=== PATIENT | male | born 1990 | race Caucasian/White ===

== ENCOUNTER 2017-04-01 09:25 | Emergency (ER) | payer OTHER ==
[2017-04-01 09:31] VITALS: BP 158/100
--- NOTE | 2017-04-01 10:39 | ED Physician Documentation ---
PD HPI URI - Stated complaint Stated Complaint: COUGH,FEVER,SORE THROAT - Chief complaint Chief Complaint: Heent - History obtained from History obtained from: Patient - History of Present Illness Timing - onset: How many days ago (3-4) Timing duration: Days Timing details: Gradual onset, Still present Associated symptoms: Fever, Chills, Sore throat, Dry cough, NVD Contributing factors: Travel (recently moved from [facility], restationed here on ). No: Sick contact, Immunocompromised Similar symptoms before: Has not had sx before (not regular URIs; but he does have current cold sore which is recurrent.) Recently seen: Not recently seen Review of Systems Constitutional: reports: Fever, Chills, Myalgias, Fatigue Nose: reports: Congestion Throat: reports: Sore throat Respiratory: reports: Cough GI: reports: Nausea. 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) PD PAST MEDICAL HISTORY - Past Medical History Past Medical History: Yes Respiratory: Asthma - Past Surgical History Past Surgical History: Yes HEENT: Tonsil/Adenoidectomy - Present Medications Home Medications: Ambulatory Orders Medication Instructions Recorded Confirmed Albuterol Sulfate [Proair Hfa 2 puffs IH QID #1 hfa.aer.ad 04/01/17 Inhaler] Dexamethasone [Decadron] 4 mg PO DAILY #5 tablet 04/01/17 Gabapentin 100 mg PO BID #40 capsule 04/01/17 Naproxen 375 mg PO BID #40 tablet 04/01/17 Valacyclovir HCl [Valacyclovir] 500 mg PO TID #15 tablet 04/01/17 guaiFENesin/CODEINE [Robitussin AC] 10 ml PO Q6H PRN #240 ml 04/01/17 - Allergies Allergies/Adverse Reactions: Allergies Allergy/AdvReac Type Severity Reaction Status Date / Time No Known Drug Allergies Allergy Verified 04/01/17 09:28 - Social History Does the pt smoke?: No Smoking Status: Never smoker Does the pt drink ETOH?: Yes Does the pt have substance abuse?: No - Immunizations Immunizations are current?: Yes PD ED PE NORMAL - Vitals Vital signs reviewed: Yes - General General: Alert and oriented X 3, No acute distress, Well developed/nourished - HEENT HEENT: Ears normal, Moist mucous membranes, Dentition benign. No: Pharynx benign (pharynx is normal; the right lower lip margin with small patch of fine vesicular rash c/w HSV. ) - Neck Neck: Supple, no meningeal sign, No adenopathy - Cardiac Cardiac: RRR, No murmur - Respiratory Respiratory: Clear bilaterally - Derm Derm: Normal color, Warm and dry - Extremities Extremities: No tenderness to palpate, Normal ROM s pain - Neuro Neuro: Alert and oriented X 3, No motor deficit, Normal speech Results - Vitals Vitals: Oxygen O2 Source Room air Departure - Departure Disposition: Home, Self Care Clinical Impression: Recurrent cold sores, Neck pain, chronic Upper respiratory infection Qualifiers: URI type: unspecified URI Qualified Code(s): J06.9 - Acute upper respiratory infection, unspecified Dyspnea Qualifiers: Dyspnea type: shortness of breath Qualified Code(s): R06.02 - Shortness of breath Condition: Stable Record reviewed to determine appropriate education?: Yes Instructions: ED Upper Resp Infec No Abx Tx, ED Herpes Simplex Virus Type 1, ED Neck Back Pain General Follow-Up: [facility] [Provider Group] Prescriptions: Dexamethasone [Decadron] 4 mg PO DAILY #5 tablet Gabapentin 100 mg PO BID #40 capsule Naproxen 375 mg PO BID #40 tablet Albuterol Sulfate [Proair Hfa Inhaler] 2 puffs IH QID #1 hfa.aer.ad guaiFENesin/CODEINE [Robitussin AC] 10 ml PO Q6H PRN #240 ml PRN Reason: Cough Valacyclovir HCl [Valacyclovir] 500 mg PO TID #15 tablet Comments: Your main illness sounds viral and will treat the symptoms of it while letting it get better. Albuterol inhaler 2 puffs 4 times daily for 7-10 days. Decadron for bronchial inflammation (and of glands). Add cough medication as needed. Drink lots of fluids. Tylenol for fevers/aches. For the neck, can trty Naproxen twice daily and gabapentin twice daily. These are initial treatments for ongoing neck pains/nerve pains. For the cold sore, can use acyclovir three time daily for 5 days to try to get it to go away faster. Recheck if not improved over the next few days. Discharge Date/Time: 04/01/17 11:20
== END 2017-04-01 11:20 | disposition home or self-care (01) ==
LOC: ED 09:25
DX: J06.9 Acute upper respiratory infection, unspecified (principal); J45.909 Unspecified asthma, uncomplicated; B00.1 Herpesviral vesicular dermatitis; M54.2 Cervicalgia; G89.29 Other chronic pain
CPT/HCPCS: 99283

== ENCOUNTER 2019-02-24 09:05 | Emergency (ER) | payer OTHER ==
[2019-02-24 09:33] LABS: BASOPHILS % (AUTO) 0.2 %; EOSINOPHILS # (AUTO) 0.1 10^3/uL (0.0-0.7); EOSINOPHILS % (AUTO) 0.5 %; HGB - HEMOGLOBIN 16.8 g/dL (14.0-18.0); LYMPHOCYTES # (AUTO) 0.4 10^3/uL (1.5-3.5); LYMPHOCYTES % (AUTO) 2.4 %; MEAN CORPUSCULAR HEMOGLOBIN 28.6 pg (27.0-31.0); MEAN CORPUSCULAR HGB CONC 33.9 g/dL (32.0-36.0); MEAN CORPUSCULAR VOLUME 84.4 fL (80.0-94.0); MEAN PLATELET VOLUME 9.2 fL (7.4-11.4); MONOCYTES # (AUTO) 0.6 10^3/uL (0.0-1.0); MONOCYTES % (AUTO) 3.8 %; NEUTROPHILS # (AUTO) 13.7 10^3/uL (1.5-6.6); NEUTROPHILS % (AUTO) 93.1 %; PLT - PLATELET COUNT 206 10^3/uL (130-450); RED BLOOD COUNT 5.86 10^6/uL (4.70-6.10); RED CELL DISTRIBUTION WIDTH 12.7 % (12.0-15.0); WHITE BLOOD COUNT 14.7 x10^3/uL (4.8-10.8)
[2019-02-24 09:45] LABS: ALBUMIN/GLOBULIN RATIO 1.5 (1.0-2.2); BILIRUBIN,TOTAL 1.2 mg/dL (0.2-1.0); CALCIUM 9.3 mg/dL (8.5-10.3); CREATININE 1.1 mg/dL (0.6-1.2); TOTAL PROTEIN 8.4 g/dL (6.7-8.2)
[2019-02-24 11:53] LABS: BILIRUBIN,URINE NEGATIVE (NEGATIVE); GLUCOSE, URINE (UA) NEGATIVE (NEGATIVE); KETONES,URINE (UA) NEGATIVE (NEGATIVE); LEUKOCYTE ESTERASE, URINE NEGATIVE (NEGATIVE); NITRITE,URINE NEGATIVE (NEGATIVE); OCCULT BLOOD,URINE NEGATIVE (NEGATIVE); PH,URINE 5.5 PH (5.0-7.5); PROTEIN,URINE NEGATIVE (NEGATIVE); UROBILINOGEN,URINE 0.2 (NORMAL) E.U./dL (NORMAL)
[2019-02-24 11:55] LABS: CLARITY,URINE CLEAR (CLEAR)
[2019-02-24] MEDS ORDERED: ONDANSETRON 4 MG/2 ML VIAL IVP STA (11:58)
[2019-02-24] MEDS ORDERED: LACTATED RINGERS 2,000 ML IV STA (11:58)
[2019-02-24] MEDS ORDERED: LOPERAMIDE 2 MG CAPSULE PO STA (11:58)
--- NOTE | 2019-02-24 11:59 | ED Physician Documentation ---
PD HPI NVD - Stated complaint Stated Complaint: V/D/DIZZY/FEVER - Chief complaint Chief Complaint: Abd Pain - History obtained from History obtained from: Patient - History of Present Illness Timing - onset: Today (He became abruptly ill at 2 AM this morning with vomiting and diarrhea. There is no abdominal pain associated with it. No blood from either end. No sick contacts or recent travel.) Review of Systems Constitutional: reports: Chills, Sweats. denies: Fever Cardiac: denies: Chest pain / pressure, Palpitations Respiratory: denies: Dyspnea, Cough PD PAST MEDICAL HISTORY - Past Medical History Respiratory: Asthma - Past Surgical History Past Surgical History: Yes HEENT: Tonsil/Adenoidectomy - Present Medications Home Medications: Ambulatory Orders Medication Instructions Recorded Confirmed Loperamide [Imodium] 2 mg PO QID PRN #10 capsule 02/24/19 Ondansetron Odt [Zofran] 4 mg TL Q6H PRN #10 tablet 02/24/19 - Allergies Allergies/Adverse Reactions: Allergies Allergy/AdvReac Type Severity Reaction Status Date / Time No Known Drug Allergies Allergy Verified 02/24/19 09:12 - Social History Does the pt smoke?: No Smoking Status: Never smoker Does the pt drink ETOH?: Yes Does the pt have substance abuse?: No - Immunizations Immunizations are current?: Yes PD ED PE NORMAL - Vitals Vital signs reviewed: Yes - General General: Alert and oriented X 3, No acute distress, Other (Modest tachycardia) - HEENT HEENT: Other (Mildly dry mucous membranes) - Neck Neck: Supple, no meningeal sign, No bony TTP - Abdomen Abdomen: Normal bowel sounds, Soft, Non tender - Neuro Neuro: Alert and oriented X 3, Normal speech - Psych Psych: Normal mood, Normal affect Results - Vitals Vitals: Vital Signs - 24 hr 02/24/19 02/24/19 02/24/19 09:10 11:44 13:07 Temperature 35.9 C L 37.1 C Heart Rate 114 H 103 H 110 H Respiratory 14 14 15 Rate Blood Pressure 130/95 H 138/90 H 128/74 O2 Saturation 99 98 100 Oxygen O2 Source Room air - Labs Labs: Laboratory Tests 02/24/19 02/24/19 02/24/19 09:26 09:26 11:30 WBC 14.7 H RBC 5.86 Hgb 16.8 Hct 49.5 MCV 84.4 MCH 28.6 MCHC 33.9 RDW 12.7 Plt Count 206 MPV 9.2 Neut # (Auto) 13.7 H Lymph # (Auto) 0.4 L [place] # (Auto) 0.6 Eos # (Auto) 0.1 Baso # (Auto) 0.0 Absolute Nucleated RBC 0.04 Nucleated RBC % 0.3 Sodium 137 Potassium 4.7 Chloride 99 L Carbon Dioxide 29 Anion Gap 9.0 BUN 26 H Creatinine 1.1 Estimated GFR (MDRD) 80 L Glucose 142 H Calcium 9.3 Total Bilirubin 1.2 H AST 31 ALT 36 Alkaline Phosphatase 56 Total Protein 8.4 H Albumin 5.0 Globulin 3.4 Albumin/Globulin Ratio 1.5 Lipase 26 Urine Color YELLOW Urine Clarity CLEAR Urine pH 5.5 Ur Specific [place] >=1.030 H Urine Protein NEGATIVE Urine Glucose (UA) NEGATIVE Urine Ketones NEGATIVE Urine Occult Blood NEGATIVE Urine Nitrite NEGATIVE Urine Bilirubin NEGATIVE Urine Urobilinogen 0.2 (NORMAL) Ur Leukocyte Esterase NEGATIVE Ur Microscopic Review NOT INDICATED Urine Culture Comments NOT INDICATED PD MEDICAL DECISION MAKING - ED course ED course: This is a 29-year-old gentleman with clinical gastroenteritis. He was not much better after Zofran, but feeling much better after Reglan, passed a p.o. challenge and on reexamination prior to discharge remained completely nontender including to deep palpation in the right lower quadrant. Departure - Departure Disposition: 01 Home, Self Care Clinical Impression: Gastroenteritis Condition: Good Record reviewed to determine appropriate education?: Yes Instructions: ED Gastroenteritis Viral Prescriptions: Loperamide [Imodium] 2 mg PO QID PRN #10 capsule PRN Reason: Diarrhea Ondansetron Odt [Zofran] 4 mg TL Q6H PRN #10 tablet PRN Reason: Nausea / Vomiting Comments: Return in 12 hours if not better, anytime if worse or if new symptoms develop. Forms: Activity restrictions
[2019-02-24] MEDS ORDERED: METOCLOPRAMIDE 10 MG/2 ML VIAL IVP STA (12:46)
[2019-02-24 14:26] VITALS: BP 138/70
== END 2019-02-24 14:26 | disposition home or self-care (01) ==
LOC: ED 09:05
DX: K52.9 Noninfective gastroenteritis and colitis, unspecified (principal)
CPT/HCPCS: 36415; 80053; 81003; 83690; 85025; 96361; 96374; 96375; 99283; 99284; A9270; J2765; J7120; 81001; 87086

== ENCOUNTER 2019-07-03 15:13 | Emergency (ER) | payer OTHER ==
[2019-07-03 15:28] VITALS: BP 149/89
--- NOTE | 2019-07-03 15:44 | ED Physician Documentation ---
PD HPI SKIN - Stated complaint Stated Complaint: HORNET STINGS LT LEG - Chief complaint Chief Complaint: Allergic Rx - History obtained from History obtained from: Patient - History of Present Illness Timing - onset: Yesterday (He was stung several times to the left lower leg by wasps yesterday and now has burning pain in that area and blister formation. No fevers.) Review of Systems Constitutional: denies: Fever, Chills Cardiac: reports: Reviewed and negative Respiratory: reports: Reviewed and negative PD PAST MEDICAL HISTORY - Past Medical History Respiratory: Asthma - Past Surgical History Past Surgical History: Yes HEENT: Tonsil/Adenoidectomy - Present Medications Home Medications: Ambulatory Orders Medication Instructions Recorded Confirmed Loperamide [Imodium] 2 mg PO QID PRN #10 capsule 02/24/19 Ondansetron Odt [Zofran] 4 mg TL Q6H PRN #10 tablet 02/24/19 Cephalexin [Keflex] 500 mg PO Q6H #28 capsule 07/03/19 Doxepin [SINEquan] 10 mg PO TID PRN #30 capsule 07/03/19 predniSONE [Deltasone] 60 mg PO DAILY 5 Days tablet 07/03/19 - Allergies Allergies/Adverse Reactions: Allergies Allergy/AdvReac Type Severity Reaction Status Date / Time No Known Drug Allergies Allergy Verified 07/03/19 15:28 - Social History Does the pt smoke?: No Smoking Status: Never smoker Does the pt drink ETOH?: Yes Does the pt have substance abuse?: No - Immunizations Immunizations are current?: Yes PD ED PE NORMAL - Vitals Vital signs reviewed: Yes - General General: Alert and oriented X 3, No acute distress - HEENT HEENT: Pharynx benign - Respiratory Respiratory: No respiratory distress - Extremities Extremities: Other (He has several bullae on the calf and anterior left leg and a lot of surrounding redness there. The bullae were opened during examination, clear fluid.) - Neuro Neuro: Alert and oriented X 3, Normal speech Results - Vitals Vitals: Vital Signs - 24 hr 07/03/19 15:25 Temperature 37 C Heart Rate 95 Respiratory 17 Rate Blood Pressure 149/89 H O2 Saturation 99 Oxygen O2 Source Room air PD MEDICAL DECISION MAKING - ED course ED course: This is a 29-year-old gentleman with several wasp stings with significant local reaction, no evidence of anaphylaxis. The bullae were debrided. He is placed on antibiotics, steroids, and doxepin for the itching. He also needed a note for work, he says he can still work, he is active [employer], he just cannot wear his boots because it rubs on the area. Departure - Departure Disposition: Home, Self Care Clinical Impression: Sting from hornet, wasp, or bee Qualifiers: Encounter type: initial encounter Injury intent: accidental or unintentional Qualified Code(s): T63.451A - Toxic effect of venom of hornets, accidental (unintentional), initial encounter Condition: Good Record reviewed to determine appropriate education?: Yes Instructions: ED Allergic Reaction Local Other Prescriptions: Cephalexin [Keflex] 500 mg PO Q6H #28 capsule Doxepin [SINEquan] 10 mg PO TID PRN #30 capsule PRN Reason: Itching predniSONE [Deltasone] 60 mg PO DAILY 5 Days tablet Comments: He should be better in the next few days, return for new or worsening symptoms or for fever. Your blood pressure was elevated today on check into the emergency department. This does not mean that you have hypertension, it is a common phenomenon to come to the emergency department and have elevated blood pressure. I recommend that you see your primary care physician within the week to have it rechecked when you are feeling better. Forms: Activity restrictions
== END 2019-07-03 15:55 | disposition home or self-care (01) ==
LOC: ED 15:13
DX: T63.461A Toxic effect of venom of wasps, accidental (unintentional), initial encounter (principal); R20.8 Other disturbances of skin sensation; S80.822A Blister (nonthermal), left lower leg, initial encounter; L53.9 Erythematous condition, unspecified
CPT/HCPCS: 99283

== ENCOUNTER 2019-08-29 19:12 | Emergency (ER) | payer OTHER ==
[2019-08-29 20:02] LABS: BASOPHILS # (AUTO) 0.1 10^3/uL (0.0-0.1); BASOPHILS % (AUTO) 0.5 %; EOSINOPHILS # (AUTO) 0.3 10^3/uL (0.0-0.7); EOSINOPHILS % (AUTO) 3.5 %; HGB - HEMOGLOBIN 13.8 g/dL (14.0-18.0); LYMPHOCYTES # (AUTO) 1.8 10^3/uL (1.5-3.5); LYMPHOCYTES % (AUTO) 18.3 %; MEAN CORPUSCULAR HEMOGLOBIN 27.9 pg (27.0-31.0); MEAN CORPUSCULAR HGB CONC 32.5 g/dL (32.0-36.0); MEAN CORPUSCULAR VOLUME 85.8 fL (80.0-94.0); MONOCYTES # (AUTO) 0.9 10^3/uL (0.0-1.0); MONOCYTES % (AUTO) 8.6 %; NEUTROPHILS # (AUTO) 6.8 10^3/uL (1.5-6.6); NEUTROPHILS % (AUTO) 68.6 %; PLT - PLATELET COUNT 235 10^3/uL (130-450); RED BLOOD COUNT 4.94 10^6/uL (4.70-6.10); RED CELL DISTRIBUTION WIDTH 12.6 % (12.0-15.0); WHITE BLOOD COUNT 9.9 x10^3/uL (4.8-10.8)
[2019-08-29 20:17] LABS: ALBUMIN 4.9 g/dL (3.2-5.5); ALBUMIN/GLOBULIN RATIO 1.8 (1.0-2.2); BILIRUBIN,TOTAL 0.7 mg/dL (0.2-1.0); CALCIUM 9.3 mg/dL (8.5-10.3); CREATININE 1.3 mg/dL (0.6-1.2); TOTAL PROTEIN 7.7 g/dL (6.7-8.2)
[2019-08-29] MEDS ORDERED: SODIUM CHLORIDE 0.9% 1,000 ML IV ONE (20:54)
[2019-08-29 21:29] LABS: MAGNESIUM 2.3 mg/dL (1.7-2.8); PHOSPHORUS 3.5 mg/dL (2.5-4.6)
--- NOTE | 2019-08-29 21:45 | CT Report ---
Reason: altered, weak. Procedure Date: 08/29/2019 Accession Number: [id number] / [id number] Procedure: CT - HEAD WO CPT Code: FULL RESULT: EXAM: CT HEAD EXAM DATE: 08/29/2019 09:28 PM. CLINICAL HISTORY: Altered mental status, dizziness. COMPARISON: None. TECHNIQUE: Multiaxial CT images were obtained from the foramen magnum to the vertex. Reformats: Sagittal and coronal. IV contrast: None. In accordance with CT protocol optimization, one or more of the following dose reduction techniques were utilized for this exam: automated exposure control, adjustment of mA and/or KV based on patient size, or use of iterative reconstructive technique. FINDINGS: Parenchyma: No intraparenchymal hemorrhage. No evidence of mass, midline shift, or CT findings of infarction. Ridley-white differentiation is distinct. Extraaxial Spaces: Normal for age. No subdural or epidural collections. Ventricles: Normal in size and position. Sinuses and Orbits: Imaged paranasal sinuses, orbits, and mastoids show no significant abnormality. Bones: Unremarkable. Other: None. IMPRESSION: Normal head CT. RADIA
--- NOTE | 2019-08-29 21:46 | ED Physician Documentation ---
History of Present Illness - Stated complaint Stated Complaint: LOSS OF VISION/BALANCE - Chief complaint Chief Complaint: Heent - History obtained from History obtained from: Patient, Family - History of Present Illness Timing: How many weeks ago (several weeks) Pain level max: 0 Pain level now: 0 Improved by: rest Worsened by: standing, moving - Additonal information Additional information: 29-year-old male presents to the emergency department stating that he has had ongoing issues with dizziness, lightheadedness and foggy feelings in his head for the past several weeks. Occasionally has difficulty walking. His states that last night she noticed that his right arm appeared stiffened in his sleep. She had trouble waking him up at that point as well. Has been seen by his PCP for this and is being referred to neurology and cardiology. He occas ionally gets left-sided chest pain as well. He is currently awaiting referral. Has not had any neuroimaging performed. He does have 2 relatives with multiple sclerosis. Review of Systems Ten Systems: 10 systems reviewed and negative Constitutional: denies: Fever, Chills Eyes: denies: Photophobia, Irritation Nose: denies: Rhinorrhea / runny nose, Congestion Throat: denies: Sore throat Respiratory: denies: Cough GI: denies: Vomiting, Diarrhea Skin: denies: Rash Musculoskeletal: reports: Neck pain (states has had neck pain for years) Neurologic: reports: Generalized weakness, Confused (states feels confused). denies: Numbness Psychiatric: denies: Depressed, Suicidal, Homicidal, Hallucinations, Delusions, Anxiety PD PAST MEDICAL HISTORY - Past Medical History Past Medical History: Yes Cardiovascular: Arrhythmia Respiratory: Asthma Neuro: Headaches, Fainting, Other - Past Surgical History Past Surgical History: Yes HEENT: Tonsil/Adenoidectomy - Present Medications Home Medications: Ambulatory Orders Medication Instructions Recorded Confirmed Cephalexin [Keflex] 500 mg PO Q6H #28 capsule 07/03/19 Doxepin [SINEquan] 10 mg PO TID PRN #30 capsule 07/03/19 predniSONE [Deltasone] 60 mg PO DAILY 5 Days tablet 07/03/19 - Allergies Allergies/Adverse Reactions: Allergies Allergy/AdvReac Type Severity Reaction Status Date / Time No Known Drug Allergies Allergy Verified 08/29/19 19:41 - Social History Does the pt smoke?: No Smoking Status: Never smoker Does the pt drink ETOH?: Yes Does the pt have substance abuse?: No - Immunizations Immunizations are current?: Yes - POLST Patient has POLST: No PD ED PE NORMAL - Vitals Vital signs reviewed: Yes - General General: Alert and oriented X 3, No acute distress, Well developed/nourished - HEENT HEENT: PERRL, EOMI, Ears normal, Moist mucous membranes, Pharynx benign - Neck Neck: Supple, no meningeal sign, No bony TTP - Cardiac Cardiac: RRR, Strong equal pulses - Respiratory Respiratory: No respiratory distress, Clear bilaterally - Abdomen Abdomen: Soft, Non tender, Non distended - Back Back: No spinal TTP - Derm Derm: Warm and dry - Extremities Extremities: Other (4 out of 5 strength raising his knee is off of the edge of the bed bilaterally. 4 out of 5 strength with extension of the lower legs. 5 out of 5 strength bilaterally with flexion. Normal reflexes throughout the lower and upper extremities. 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, No sensory deficit Eye Opening: Spontaneous Motor: Obeys Commands Verbal: Oriented GCS Score: 15 - Psych Psych: Normal mood, Normal affect Results - Vitals Vitals: Vital Signs - 24 hr 08/29/19 23:13 Temperature 36.7 C Heart Rate 84 Respiratory 16 Rate Blood Pressure 150/92 H O2 Saturation 99 Oxygen O2 Source Room air - Labs Labs: Laboratory Tests 08/29/19 08/29/19 08/29/19 19:56 19:56 19:56 WBC 9.9 RBC 4.94 Hgb 13.8 L Hct 42.4 MCV 85.8 MCH 27.9 MCHC 32.5 RDW 12.6 Plt Count 235 MPV 11.0 Neut # (Auto) 6.8 H Lymph # (Auto) 1.8 [place] # (Auto) 0.9 Eos # (Auto) 0.3 Baso # (Auto) 0.1 Absolute Nucleated RBC 0.00 Nucleated RBC % 0.0 Sodium 140 Potassium 4.0 Chloride 102 Carbon Dioxide 29 Anion Gap 9.0 BUN 24 H Creatinine 1.3 H Estimated GFR (MDRD) 66 L Glucose 107 H Calcium 9.3 Phosphorus 3.5 Magnesium 2.3 Total Bilirubin 0.7 AST 21 ALT 24 Alkaline Phosphatase 62 Total Protein 7.7 Albumin 4.9 Globulin 2.8 Albumin/Globulin Ratio 1.8 Lipase 27 Urine Color Urine Clarity Urine pH Ur Specific [place] Urine Protein Urine Glucose (UA) Urine Ketones Urine Occult Blood Urine Nitrite Urine Bilirubin Urine Urobilinogen Ur Leukocyte Esterase Ur Microscopic Review Urine Culture Comments 08/29/19 22:20 WBC RBC Hgb Hct MCV MCH MCHC RDW Plt Count MPV Neut # (Auto) Lymph # (Auto) [place] # (Auto) Eos # (Auto) Baso # (Auto) Absolute Nucleated RBC Nucleated RBC % Sodium Potassium Chloride Carbon Dioxide Anion Gap BUN Creatinine Estimated GFR (MDRD) Glucose Calcium Phosphorus Magnesium Total Bilirubin AST ALT Alkaline Phosphatase Total Protein Albumin Globulin Albumin/Globulin Ratio Lipase Urine Color YELLOW Urine Clarity CLEAR Urine pH 5.5 Ur Specific [place] 1.020 Urine Protein NEGATIVE Urine Glucose (UA) NEGATIVE Urine Ketones NEGATIVE Urine Occult Blood NEGATIVE Urine Nitrite NEGATIVE Urine Bilirubin NEGATIVE Urine Urobilinogen 0.2 (NORMAL) Ur Leukocyte Esterase NEGATIVE Ur Microscopic Review NOT INDICATED Urine Culture Comments NOT INDICATED - Rads (name of study) Head CT Radiology: Prelim report reviewed, EMP read contemporaneously, See rad report (No acute intracranial abnormality) PD MEDICAL DECISION MAKING - ED course Complexity details: reviewed results, re-evaluated patient, considered differential, d/w patient, d/w family ED course: 29-year-old male with symptoms of unclear etiology. Presentation is concerning for multiple sclerosis, especially given his family history. No acute findings on head CT. Recommend a brain MRI with his doctor. May also need an EEG for potential seizures. He also would benefit from a urgent neurology referral. While the neurology referral is pending, he should be able to get the other needed test. He also appears to have small jerking movements to his head occa sionally. Unclear etiology of these symptoms. His presentation is most consistent with a neurological disorder. We will have him follow-up with his PCP for further care. Patient counseled regarding signs and symptoms for which I believe and urgent re-evaluation would be necessary. Patient with good understanding of and agreement to plan and is comfortable going home at this time This document was made in part using voice recognition software. While efforts are made to proofread this document, sound alike and grammatical errors may occur. Departure - Departure Disposition: 01 Home, Self Care Clinical Impression: Dizziness Condition: Good Instructions: Multiple Sclerosis, ED Dizziness UKO Follow-Up: FRANTZ KEANE MD [Primary Care Provider] - Within 1 week Comments: The cause of your symptoms is unclear today, but it is concerning for a neurological disorder, such as multiple sclerosis. Especially given that you have 2 family members with the disease. You need a brain MRI with and without contrast. Your doctor may want to include the spinal cord as well. Your blood work is normal today as well as your non-contrast head CT. It is recommended that you follow-up with neurology within the next 2 to 3 weeks. You may benefit from a lumbar puncture as well as evoked potential testing. An EEG may be helpful as it sounds like you may have had a seizure while you are sleeping. An echocardiogram can be ordered to further evaluate your heart prior to your cardiology appointment. Discharge Date/Time: 08/29/19 23:22
[2019-08-29 22:53] LABS: BILIRUBIN,URINE NEGATIVE (NEGATIVE); GLUCOSE, URINE (UA) NEGATIVE (NEGATIVE); KETONES,URINE (UA) NEGATIVE (NEGATIVE); LEUKOCYTE ESTERASE, URINE NEGATIVE (NEGATIVE); NITRITE,URINE NEGATIVE (NEGATIVE); OCCULT BLOOD,URINE NEGATIVE (NEGATIVE); PH,URINE 5.5 PH (5.0-7.5); PROTEIN,URINE NEGATIVE (NEGATIVE); UROBILINOGEN,URINE 0.2 (NORMAL) E.U./dL (NORMAL)
[2019-08-29 22:55] LABS: CLARITY,URINE CLEAR (CLEAR)
[2019-08-29 23:18] VITALS: BP 150/92
== END 2019-08-29 23:22 | disposition home or self-care (01) ==
LOC: ED 19:12
DX: R42 Dizziness and giddiness (principal); R41.0 Disorientation, unspecified; R07.9 Chest pain, unspecified; R26.2 Difficulty in walking, not elsewhere classified; Z82.0 Family history of epilepsy and other diseases of the nervous system
CPT/HCPCS: 36415; 70450; 80053; 81001; 81003; 83690; 83735; 84100; 85025; 87086; 96360; 99283

== ENCOUNTER 2019-09-04 07:12 | Outpatient (CLI) | payer OTHER ==
--- NOTE | 2019-09-04 09:10 | MRI Report ---
Reason: DYSARTHRIA Procedure Date: 09/04/2019 Accession Number: [id number] / [id number] Procedure: MRI - Brain W/WO CPT Code: FULL RESULT: EXAM: MRI BRAIN WITHOUT AND WITH CONTRAST EXAM DATE: 09/04/2019 08:33 AM. CLINICAL HISTORY: DYSARTHRIA. COMPARISON: CT W/O 08/29/2019 9:28 PM. TECHNIQUE: Multiplanar, multisequence T1-weighted and fluid-sensitive MR sequences of the brain were performed before and after administration of intravenous contrast. Sequences optimized for routine evaluation. Other: None. IV Contrast: Yes, without and with an amount Gadavist best. FINDINGS: Brain Volume: Normal for age. Parenchyma: No acute hemorrhage, mass, or infarct. No white matter lesions identified. No abnormal enhancement. Ventricles/Cisterns: No hydrocephalus. No abnormal extra-axial fluid collection or hemorrhage. Orbits: Symmetric and unremarkable. Sella [place]: Unremarkable. IAC: Symmetric and unremarkable. Vasculature: Normal signal flow void is seen in the major arterial structures at the skull base. The dural sinuses are patent and enhance normally. Sinuses: Moderate pansinus mucosal thickening. Bones: No focal pathologic appearing marrow signal changes. Other: None. IMPRESSION: 1. Moderate chronic appearing paranasal sinus disease. 2. Otherwise normal brain MRI. RADIA
== END 2019-09-04 07:13 | disposition home or self-care (01) ==
LOC: DI 07:12
DX: R47.1 Dysarthria and anarthria (principal); J32.4 Chronic pansinusitis
CPT/HCPCS: 70553; A9585

== ENCOUNTER 2019-09-09 16:43 | Emergency (ER) | payer OTHER ==
--- NOTE | 2019-09-09 18:34 | ED Physician Documentation ---
PD HPI SKIN - Stated complaint Stated Complaint: FULL BODY HIVES - Chief complaint Chief Complaint: Allergic Rx - History obtained from History obtained from: Patient - History of Present Illness Timing - onset: Other (Hives starting last night. No clear inciting factor, no new foods etc. Mostly on the trunk and legs. Has never had this before. Tried Benadryl without relief.) Review of Systems Constitutional: denies: Fever, Chills Cardiac: denies: Chest pain / pressure, Palpitations Respiratory: denies: Dyspnea, Cough GI: denies: Abdominal Pain PD PAST MEDICAL HISTORY - Past Medical History Cardiovascular: Arrhythmia Respiratory: Asthma Neuro: Headaches, Fainting, Other - Past Surgical History Past Surgical History: Yes HEENT: Tonsil/Adenoidectomy - Present Medications Home Medications: Ambulatory Orders Medication Instructions Recorded Confirmed Cephalexin [Keflex] 500 mg PO Q6H #28 capsule 07/03/19 Doxepin [SINEquan] 10 mg PO TID PRN #30 capsule 07/03/19 predniSONE [Deltasone] 60 mg PO DAILY 5 Days tablet 07/03/19 Doxepin [SINEquan] 10 mg PO TID PRN #30 capsule 09/09/19 predniSONE [Deltasone] 60 mg PO DAILY 5 Days #15 tablet 09/09/19 - Allergies Allergies/Adverse Reactions: Allergies Allergy/AdvReac Type Severity Reaction Status Date / Time No Known Drug Allergies Allergy Verified 09/09/19 16:48 - Social History Does the pt smoke?: No Smoking Status: Never smoker Does the pt drink ETOH?: Yes Does the pt have substance abuse?: No - Immunizations Immunizations are current?: Yes - POLST Patient has POLST: No PD ED PE NORMAL - Vitals Vital signs reviewed: Yes - General General: Alert and oriented X 3, No acute distress - HEENT HEENT: PERRL, Pharynx benign - Neck Neck: Supple, no meningeal sign, No bony TTP - Respiratory Respiratory: No respiratory distress, Clear bilaterally - Derm Derm: Other (Diffuse confluent hives especially on the trunk and anterior thighs, also the axilla.) - Neuro Neuro: Alert and oriented X 3, Normal speech Results - Vitals Vitals: Vital Signs - 24 hr 09/09/19 16:48 Temperature 36.6 C Heart Rate 87 Respiratory 18 Rate Blood Pressure 158/74 H O2 Saturation 99 Oxygen O2 Source Room air Departure - Departure Disposition: Home, Self Care Clinical Impression: Hives Condition: Good Record reviewed to determine appropriate education?: Yes Instructions: ED Urticaria Prescriptions: Doxepin [SINEquan] 10 mg PO TID PRN #30 capsule PRN Reason: Itching predniSONE [Deltasone] 60 mg PO DAILY 5 Days #15 tablet Comments: Call your doctor to arrange a follow-up appointment, make the next available appointment. In the interim, return anytime if worse or if new symptoms develop. Your blood pressure was elevated today on check into the emergency department. This does not mean that you have hypertension, it is a common phenomenon to come to the emergency department and have elevated blood pressure. I recommend that you see your primary care physician within the week to have it rechecked when you are feeling better.
[2019-09-09 18:47] VITALS: BP 140/87
== END 2019-09-09 18:48 | disposition home or self-care (01) ==
LOC: ED 16:43
DX: L50.9 Urticaria, unspecified (principal); R03.0 Elevated blood-pressure reading, without diagnosis of hypertension
CPT/HCPCS: 99282; 99283

== ENCOUNTER 2019-11-10 10:30 | Emergency (ER) | payer OTHER ==
[2019-11-10 13:31] VITALS: BP 142/95
[2019-11-10] MEDS ORDERED: SODIUM CHLORIDE 0.9% 1,000 ML IV ONE (13:33)
[2019-11-10] MEDS ORDERED: BUTALB/ACETAM/CAFF 50/325/40MG TABLET PO STA (13:47)
[2019-11-10] MEDS ORDERED: KETOROLAC 30 MG/ML VIAL IVP STA (13:47)
--- NOTE | 2019-11-10 13:50 | ED Physician Documentation ---
PD HPI HEADACHE - Stated complaint Stated Complaint: [place] - Chief complaint Chief Complaint: Neuro - History obtained from History obtained from: Patient - History of Present Illness Timing - onset: How many days ago (2) Timing - details: Gradual onset Pain level max: 6 Pain level now: 5 Location: Global Quality: Throbbing, Aching Associated symptoms: Nausea. No: Fever, Stiff neck, Vomiting, Weakness, Numbness, Syncope, Seizure, Eye pain, Vision changes Improved by: Rest Worsened by: Light, Noise, Moving - Additional information Additional information: 2 days status post lumbar puncture. No fevers. Review of Systems Constitutional: denies: Fever, Chills Nose: denies: Rhinorrhea / runny nose, Congestion Respiratory: denies: Cough GI: denies: Vomiting, Diarrhea Skin: denies: Rash Musculoskeletal: denies: Neck pain, Back pain Neurologic: denies: Focal weakness, Numbness, Confused, Head injury, LOC PD PAST MEDICAL HISTORY - Past Medical History Cardiovascular: Arrhythmia Respiratory: Asthma Neuro: Headaches, Seizure disorder, Fainting, Other Endocrine/Autoimmune: None GI: None : None HEENT: None Psych: None Musculoskeletal: None Derm: None - Past Surgical History Past Surgical History: Yes HEENT: Tonsil/Adenoidectomy - Present Medications Home Medications: Ambulatory Orders Medication Instructions Recorded Confirmed Cephalexin [Keflex] 500 mg PO Q6H #28 capsule 07/03/19 Doxepin [SINEquan] 10 mg PO TID PRN #30 capsule 07/03/19 predniSONE [Deltasone] 60 mg PO DAILY 5 Days tablet 07/03/19 Doxepin [SINEquan] 10 mg PO TID PRN #30 capsule 09/09/19 predniSONE [Deltasone] 60 mg PO DAILY 5 Days #15 tablet 09/09/19 Butalb/Acetaminophen/Caffeine 1 each PO Q6H PRN #10 capsule 11/10/19 [Fioricet 50-300-40 mg Capsule] - Allergies Allergies/Adverse Reactions: Allergies Allergy/AdvReac Type Severity Reaction Status Date / Time No Known Drug Allergies Allergy Verified 11/10/19 10:44 - Social History Does the pt smoke?: No Smoking Status: Never smoker Does the pt drink ETOH?: Yes Does the pt have substance abuse?: No - Immunizations Immunizations are current?: Yes - POLST Patient has POLST: No PD ED PE NORMAL - Vitals Vital signs reviewed: Yes - General General: Alert and oriented X 3, No acute distress, Well developed/nourished - HEENT HEENT: PERRL, Ears normal, Moist mucous membranes, Pharynx benign - Neck Neck: Supple, no meningeal sign - Cardiac Cardiac: RRR, Strong equal pulses - Respiratory Respiratory: No respiratory distress, Clear bilaterally - Abdomen Abdomen: Soft, Non tender, Non distended - Back Back: No spinal TTP - Derm Derm: Warm and dry, No rash - Extremities Extremities: No edema - Neuro Neuro: Alert and oriented X 3 - Psych Psych: Normal mood, Normal affect Results - Vitals Vitals: Vital Signs - 24 hr 11/10/19 11/10/19 10:44 13:30 Temperature 36.9 C 37.5 C Heart Rate 69 84 Respiratory 17 18 Rate Blood Pressure 134/74 H 142/95 H O2 Saturation 99 99 Oxygen O2 Source Room air - Labs Labs: Laboratory Tests 11/10/19 11/10/19 13:45 13:45 WBC 5.8 RBC 5.47 Hgb 15.5 Hct 45.9 MCV 83.9 MCH 28.3 MCHC 33.8 RDW 12.5 Plt Count 227 MPV 11.3 Neut # (Auto) 3.6 Lymph # (Auto) 1.6 [place] # (Auto) 0.4 Eos # (Auto) 0.2 Baso # (Auto) 0.0 Absolute Nucleated RBC 0.00 Nucleated RBC % 0.0 Sodium 140 Potassium 4.0 Chloride 101 Carbon Dioxide 30 Anion Gap 9.0 BUN 14 Creatinine 1.3 H Estimated GFR (MDRD) 66 L Glucose 96 Calcium 10.0 Total Bilirubin 0.8 AST 24 ALT 30 Alkaline Phosphatase 51 Total Protein 8.6 H Albumin 5.5 Globulin 3.1 Albumin/Globulin Ratio 1.8 Lipase 26 PD MEDICAL DECISION MAKING - ED course Complexity details: reviewed results, re-evaluated patient, considered differential, d/w patient ED course: Patient feels much better after Fioricet, Toradol and IV fluids. He would like to go home at this time. Does not want to have a blood patch performed. No signs of infection. Patient counseled regarding signs and symptoms for which I believe and urgent re-evaluation would be necessary. Patient with good understanding of and agreement to plan and is comfortable going home at this time This document was made in part using voice recognition software. While efforts are made to proofread this document, sound alike and grammatical errors may occur. Departure - Departure Disposition: 01 Home, Self Care Clinical Impression: Post-dural puncture headache Condition: Good Instructions: ED Headache Post Spinal Tap No Patc Follow-Up: FRANTZ KEANE MD [Primary Care Provider] - Within 1 week Prescriptions: Butalb/Acetaminophen/Caffeine [Fioricet 50-300-40 mg Capsule] 1 each PO Q6H PRN #10 capsule PRN Reason: headache Comments: Return if you worsen. Drink plenty of water at home. Follow-up with your doctor for further care. Discharge Date/Time: 11/10/19 14:33
[2019-11-10 14:10] LABS: BASOPHILS % (AUTO) 0.7 %; EOSINOPHILS # (AUTO) 0.2 10^3/uL (0.0-0.7); EOSINOPHILS % (AUTO) 2.8 %; HGB - HEMOGLOBIN 15.5 g/dL (14.0-18.0); LYMPHOCYTES # (AUTO) 1.6 10^3/uL (1.5-3.5); LYMPHOCYTES % (AUTO) 27.4 %; MEAN CORPUSCULAR HEMOGLOBIN 28.3 pg (27.0-31.0); MEAN CORPUSCULAR HGB CONC 33.8 g/dL (32.0-36.0); MEAN CORPUSCULAR VOLUME 83.9 fL (80.0-94.0); MEAN PLATELET VOLUME 11.3 fL (7.4-11.4); MONOCYTES # (AUTO) 0.4 10^3/uL (0.0-1.0); MONOCYTES % (AUTO) 6.9 %; NEUTROPHILS # (AUTO) 3.6 10^3/uL (1.5-6.6); NEUTROPHILS % (AUTO) 61.9 %; PLT - PLATELET COUNT 227 10^3/uL (130-450); RED BLOOD COUNT 5.47 10^6/uL (4.70-6.10); RED CELL DISTRIBUTION WIDTH 12.5 % (12.0-15.0); WHITE BLOOD COUNT 5.8 x10^3/uL (4.8-10.8)
[2019-11-10 14:25] LABS: ALBUMIN 5.5 g/dL (3.2-5.5); ALBUMIN/GLOBULIN RATIO 1.8 (1.0-2.2); BILIRUBIN,TOTAL 0.8 mg/dL (0.2-1.0); CREATININE 1.3 mg/dL (0.6-1.2); TOTAL PROTEIN 8.6 g/dL (6.7-8.2)
== END 2019-11-10 14:33 | disposition home or self-care (01) ==
LOC: ED 10:30
DX: G97.1 Other reaction to spinal and lumbar puncture (principal); Y84.4 Aspiration of fluid as the cause of abnormal reaction of the patient, or of later complication, without mention of misadventure at the time of the procedure; G40.909 Epilepsy, unspecified, not intractable, without status epilepticus
CPT/HCPCS: 36415; 80053; 83690; 85025; 96374; 99283; 99284; A9270

== ENCOUNTER 2020-01-06 08:55 | Outpatient (CLI) | payer OTHER ==
--- NOTE | 2020-01-06 12:56 | SLEEP CARE CONSULTATION ---
Information from patient questionnaire entered by Ambreen Rucker. I have reviewed and concur with the information entered by Ambreen Rucker. This document represents the service I personally performed and the decisions made by me, Kelly Story MD, [facility]. History of Present Illness Reason for Visit: New patient Chief Complaint: reports: Unrefreshed sleep, Excessive daytime sleepiness Duration of Symptoms: 6 months Usual bedtime: 10-11 pm Time it takes to fall asleep: 10 minutes or less Snores at night: Yes Observed to quit breathing while asleep: No Sleeps alone due to snoring: No Number of times waking at night: 1-2 Reasons for waking at night: reports: Other (just randomly wake up) Toss, Turn, or Twitch while sleeping: Yes Recalls having dreams: No Usually gets out of bed at: 5 am Feels refreshed in the morning: No Morning headache: Yes Sleepy or fatigued during the day: Yes Ever fallen asleep while driving: No Takes day naps: No Prior sleep studies: No Additional HPI information: I had the pleasure of seeing Mr. Bell today regarding the possibility of him having a sleep disorder. As you know, he is a 29 year old gentleman who complains of excessive daytime sleepiness for the past 7 months. The patient tells me that he normally goes to bed around 10 - 11 pm, and it takes him approximately 10 minutes to fall asleep. He has been told that he snores loudly and irregularly at night. He has never been observed to stop breathing in his sleep. His can still sleep in the same bed. He can recall waking up on the average of 1 - 2 times during the night. Most of the time he wakes up because of no apparent reason. He has awakened occasionally because of his own snoring, but not choking, or having to gasp for air. There is a lot of tossing and turning in his sleep. No somniloquy (sleep talking) or somnambulism (sleep walking). Generally there is no recollection of dreams. In the morning he usually gets up out of the bed around 5 a.m. (noon on weekends) not feeling refreshed nor rested. He usually has a morning headache that goes away quickly. During the day he complains of feeling sleepy and fatigued. His score on [place] Sleepiness Scale is 14 out of 24. He has never fallen asleep while driving nor has had any accident due to sleepiness. He usually does not take naps during the day. Upon falling asleep during the day he denies having vivid dreams. He has never had sleep paralysis, experienced cataplexy or symptoms of restless leg syndrome. He reports having impaired concentration during the day. 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 Patient is and lives in [place]. Have you smoked in the past 12 months: No Alcohol use: No Caffeine use: Yes Caffeine amount and frequency: 2 or more a day Family History Family history of sleep disordered breathing: Yes Allergies and Home Medications Drug allergies reviewed: Yes (NKDA) Home medication list reviewed: Yes (a seizure/migraine medication just started last week) Review of Systems Cardiovascular: reports: chest pain Respiratory: denies: shortness of breath, wheeze, sputum production, chronic cough, other Gastrointestinal: denies: heartburn, difficulty swallowing, nausea, vomitting, diarrhea, abdominal pain, other Urinary: denies: incontinence, frequency, urgency, impotence, other Neurological: reports: headaches, seizure, disorientation, speech dysfunction Psychiatric: denies: Attention Deficit Hyperactivity, anxiety, depression, mood disorder, claustrophobia, other Ear/Nose/Throat: denies: nasal congestion, sinus problems, nose bleeds, dry mouth/throat, hoarseness, injury to nose, tonsillectomy, wisdom teeth removed, other Endocrine: denies: thyroid disease, history of goiter, sluggishness, too hot or cold, excessive thirst, increased appetite, increased urination, unexplained weakness, other Musculoskeletal: denies: joint pain, neck pain, back pain, joint swelling, muscle pain or cramping, mobility problems, other Immunologic: denies: sneezing, rash, itching, allergies to food or environment, other Physical Exam Vital signs obtained and entered by: Dr. Story Heart Rate: 77 O2 Saturation: 99 Height: 6 ft 1 in Weight: 230 lb Body Mass Index: 30.3 BMI Classification: Obese Neck circumference: 16 HEENT: No craniofacial malformation Nostrils: patent to airflow Turbinates: normal Septum: midline Mouth and throat: narrow oropharynx Soft palate: long Hard palate: normal Uvula: normal Uvula visualization: 50% Mallampati Class II Tongue: normal in size Tonsils: absent bilaterally Chin and jaw: normal size and position Neck: normal w/o lymphadenopathy or thyromegaly Heart: regular rate and rhythm Lungs: clear bilaterally Abdomen: soft, non-tender Extremities: no edema or clubbing Neurologic: intact, no focal deficits Impression and Plan IMPRESSION: 1. Hypersomnia, possibly due to sleep-disordered breathing as suggested by history of loud and irregular snoring, unrefreshed sleep, morning headache, and cognitive impairment. Narrow oropharynx and obesity are common predisposing factors for obstructive sleep apnea-hypopnea syndrome. Pathophysiology of sleep-disordered breathing was discussed. I recommend proceeding to polysomnography to confirm the diagnosis and to assess severity. If the polysomnography is normal, the patient will have a multiple sleep latency test (MSLT). I informed the patient of what the sleep studies involve and after some discussion, he agreed to proceed. Plan: 1. Schedule an in-laboratory polysomnography + multiple sleep latency test (MSLT) 2. Avoid long distance driving or when feeling sleepy. 3. Avoid alcohol, sedative and muscle relaxant around bedtime. 4. Attempt to lose weight. 5. Return in 1 to 2 weeks after the study to discuss results and initiate therapy. I spent 100% of this visit face to face with the patient with greater than 50% of this was spent time counseling the patient and coordination of care.
== END 2020-01-06 08:56 | disposition home or self-care (01) ==
LOC: SC 08:55
PROVIDERS: ATTEND Internal Medicine Pulmonary Disease
DX: G47.10 Hypersomnia, unspecified (principal); R06.83 Snoring; G47.8 Other sleep disorders; E66.9 Obesity, unspecified; Z68.30 Body mass index [BMI] 30.0-30.9, adult
CPT/HCPCS: 99203; 99212

== ENCOUNTER 2020-02-03 10:19 | Outpatient (CLI) | payer OTHER ==
--- NOTE | 2020-02-03 13:26 | SLEEP CARE CONSULTATION ---
Information from patient questionnaire entered by Ambreen Rucker. I have reviewed and concur with the information entered by Ambreen Rucker. This document represents the service I personally performed and the decisions made by me, Kelly Story MD, [facility]. History of Present Illness Initial [place] Sleepiness Scale score: 14 Current [place] Sleepiness Scale score: 16 Additional HPI information: HPI: Mr. Bell returned for follow up of the sleep study he had on 01/20/20. The polysomnography showed that the patient had normal sleep efficiency. The sleep architecture was normal as well. Respiratory monitoring showed mild obstructive sleep apnea-hypopnea (AHI = 9.0) associated with oxyhemoglobin desaturation and mild hypoxia (jen oxygen saturation of 89%) but not sleep fragmentation. The respiratory events occurred almost exclusively during supine sleep (supine AHI = 9.7; non-supine = 3.30). Snore was loud in intensity. There was no significant periodic leg movement of sleep. Cardiac rhythm was normal sinus rhythm without significant arrhythmia. No abnormal behavior (parasomnia) observed during the night. The patient was informed of these findings. I explained to him the pathophysiology behind obstructive sleep apnea. We then spent quite a bit of time discussing different treatment options. For mild obstructive sleep apnea, surgery and oral appliance are alternatives to nasal CPAP therapy but in moderate or severe cases, nasal CPAP is the most effective and reliable treatment. Weight loss in an obese individual is strongly recommended. After some discussion, he opted to simply not to sleep on his back. Allergies and Home Medications Drug allergies reviewed: Yes Home medication list reviewed: Yes Review of Systems Review of systems same as previous: Yes Physical Exam Vital signs obtained and entered by: Deferred due to the COVID-19 pandemic. Height: 6 ft 1 in Impression and Plan IMPRESSION: 1. Obstructive Sleep Apnea-Hypopnea Syndrome, mild, and positional. Possibly, this is the cause of the patients symptoms of unrefreshed sleep, and excessive daytime sleepiness. As mentioned above, the patient will be try to avoid sleeping supine. I advised him to sew tennis balls to the back of his Sr.Pago. If this does not work, he will return for CPAP therapy. PLAN: 1. Avoid sleeping supine 2. Attempt to lose weight and avoid alcohol consumption near bedtime. 3. Return for follow up on as needed basis. I spent 100% of this visit face to face with the patient with greater than 50% of this was spent time counseling the patient and coordination of care.
== END 2020-02-03 10:20 | disposition home or self-care (01) ==
LOC: SC 10:19
PROVIDERS: ATTEND Internal Medicine Pulmonary Disease
DX: G47.33 Obstructive sleep apnea (adult) (pediatric) (principal)
CPT/HCPCS: 99212; 99213

== ENCOUNTER 2020-09-24 20:00 | Emergency (ER) | payer OTHER ==
--- NOTE | 2020-09-24 20:26 | ED Physician Documentation ---
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 He describes daily headaches, dizziness that seems vertiginous especially if he looks up or is moving. He gets confusion, sometimes cannot find words, sometimes cannot read. He had an MRI last year which was negative except for sinus disease. He says in the interim he has since been seen by ENT and neurology without specific diagnosis. He says he has had EEG testing. He is on lamotrigine and Maxalt presuming that this is complex migraines. He is being referred to vestibular physical therapy as well. He states today was a particularly bad day. He was meeting with his realtor today, preparing to sell his house and had episodes where he could not read, could not operate his phone. His headache is "like it is on a bad day." Review of Systems Ten Systems: 10 systems reviewed and negative Constitutional: denies: Fever, Chills Nose: denies: Rhinorrhea / runny nose, Congestion Throat: denies: Dental pain / toothache Cardiac: denies: Chest pain / pressure, Palpitations PD PAST MEDICAL HISTORY - Past Medical History Cardiovascular: Arrhythmia Respiratory: Asthma Neuro: Headaches, Seizure disorder, Fainting, Other Endocrine/Autoimmune: None GI: None : None HEENT: None Psych: None Musculoskeletal: None Derm: None - Past Surgical History Past Surgical History: Yes HEENT: Tonsil/Adenoidectomy - Present Medications Home Medications: Ambulatory Orders Medication Instructions Recorded Confirmed Cephalexin [Keflex] 500 mg PO Q6H #28 capsule 07/03/19 Doxepin [SINEquan] 10 mg PO TID PRN #30 capsule 07/03/19 predniSONE [Deltasone] 60 mg PO DAILY 5 Days tablet 07/03/19 Doxepin [SINEquan] 10 mg PO TID PRN #30 capsule 09/09/19 predniSONE [Deltasone] 60 mg PO DAILY 5 Days #15 tablet 09/09/19 Butalb/Acetaminophen/Caffeine 1 each PO Q6H PRN #10 capsule 11/10/19 [Fioricet 50-300-40 mg Capsule] - Allergies Allergies/Adverse Reactions: Allergies Allergy/AdvReac Type Severity Reaction Status Date / Time No Known Drug Allergies Allergy Verified 09/24/20 20:04 - Social History Does the pt smoke?: No Smoking Status: Never smoker Does the pt drink ETOH?: Yes Does the pt have substance abuse?: No - Immunizations Immunizations are current?: Yes - POLST Patient has POLST: No PD ED PE NORMAL - Vitals Vital signs reviewed: Yes - General General: Alert and oriented X 3, No acute distress - HEENT HEENT: PERRL, EOMI - Neck Neck: Supple, no meningeal sign, No bony TTP - Cardiac Cardiac: RRR, No murmur - Respiratory Respiratory: No respiratory distress, Clear bilaterally - Abdomen Abdomen: Non tender - Back Back: No CVA TTP, No spinal TTP - Derm Derm: Normal color, Warm and dry - Extremities Extremities: No edema, No calf tenderness / cord - Neuro Neuro: Alert and oriented X 3, glove finisher 2-12 intact, No motor deficit, No sensory deficit, Normal speech Eye Opening: Spontaneous Motor: Obeys Commands Verbal: Oriented GCS Score: 15 - Psych Psych: Normal mood, Normal affect Results - Vitals Vitals: Vital Signs - 24 hr 09/24/20 09/24/20 20:04 20:23 Temperature 36.6 C 36.6 C Heart Rate 77 77 Respiratory 16 16 Rate Blood Pressure 158/87 H 158/87 H O2 Saturation 100 100 Oxygen O2 Source Room air - Labs Labs: Laboratory Tests 09/24/20 09/24/20 20:46 20:46 WBC 8.3 RBC 5.00 Hgb 14.4 Hct 42.4 MCV 84.8 MCH 28.8 MCHC 34.0 RDW 12.7 Plt Count 228 MPV 10.9 Neut # (Auto) 4.8 Lymph # (Auto) 2.5 [place] # (Auto) 0.7 Eos # (Auto) 0.3 Baso # (Auto) 0.0 Absolute Nucleated RBC 0.00 Nucleated RBC % 0.0 Sodium 140 Potassium 4.1 Chloride 105 Carbon Dioxide 26 Anion Gap 9.0 BUN 16 Creatinine 1.1 Estimated GFR (MDRD) 79 L Glucose 93 Calcium 9.6 PD MEDICAL DECISION MAKING - ED course ED course: 30-year-old gentleman who is in the midst of a longstanding specialty work-up presents with worse than normal symptoms Of his chronic ongoing vague neurologic syndrome. 30-year-old gentleman with chronic symptoms with slight worsening tonight presents for reevaluation. He has had a thorough outpatient work-up. Work-up here is negative. He did have some relief with his headache with haloperidol. Discussed with him that based on his ongoing symptoms he probably should not drive or operate heavy machinery or motor vehicles until cleared by his neurologist. Departure - Departure Disposition: Home, Self Care Clinical Impression: Dizzy Migraine Qualifiers: Migraine type: with aura Status migrainosus presence: without status migrainosus Intractability: not intractable Qualified Code(s): G43.109 - Migraine with aura, not intractable, without status migrainosus Condition: Good Record reviewed to determine appropriate education?: Yes Instructions: ED Dizziness UKO Comments: The cause of your symptoms tonight is still not clear, you did get some relief with haloperidol for the headache, albeit incomplete. Follow-up with your doctor and neurology. Return if worsening.
[2020-09-24] MEDS ORDERED: HALOPERIDOL 5 MG/ML VIAL IVP ONE (20:38)
--- NOTE | 2020-09-24 21:00 | CT Report ---
PROCEDURE: HEAD WO INDICATIONS: headache TECHNIQUE: Noncontrast 4.5 mm thick angled axial sections acquired from the foramen magnum to the vertex. For r adiation dose reduction, the following was used: automated exposure control, adjustment of mA and/or kV according to patient size. COMPARISON: Brain MRI dated 09.04 FINDINGS: Image quality: Excellent. CSF spaces: Basal cisterns are patent. No extra-axial fluid collections. Ventricles are normal in size and shape. Brain: No midline shift. No intracranial masses or hemorrhage. [place]-white matter interface is norm al. Skull and face: Calvarium and visualized facial bones are intact, without suspicious lesions. Sinuses: Visualized sinuses and mastoids are clear. IMPRESSION: No acute intracranial abnormality. Reviewed by: Ayleen Olmos MD on 09/24/2020 8:59 PM PST Approved by: Ayleen Olmos MD on 09/24/2020 8:59 PM PST Station ID: [id number]
[2020-09-24 21:05] LABS: BASOPHILS % (AUTO) 0.4 %; EOSINOPHILS # (AUTO) 0.3 10^3/uL (0.0-0.7); HGB - HEMOGLOBIN 14.4 g/dL (14.0-18.0); LYMPHOCYTES # (AUTO) 2.5 10^3/uL (1.5-3.5); LYMPHOCYTES % (AUTO) 30.4 %; MEAN CORPUSCULAR HEMOGLOBIN 28.8 pg (27.0-31.0); MEAN CORPUSCULAR VOLUME 84.8 fL (80.0-94.0); MEAN PLATELET VOLUME 10.9 fL (7.4-11.4); MONOCYTES # (AUTO) 0.7 10^3/uL (0.0-1.0); MONOCYTES % (AUTO) 8.2 %; NEUTROPHILS # (AUTO) 4.8 10^3/uL (1.5-6.6); NEUTROPHILS % (AUTO) 57.2 %; PLT - PLATELET COUNT 228 10^3/uL (130-450); RED CELL DISTRIBUTION WIDTH 12.7 % (12.0-15.0); WHITE BLOOD COUNT 8.3 x10^3/uL (4.8-10.8)
[2020-09-24 21:12] LABS: CALCIUM 9.6 mg/dL (8.5-10.3); CREATININE 1.1 mg/dL (0.6-1.2)
[2020-09-24 21:45] VITALS: BP 168/95
== END 2020-09-24 21:37 | disposition home or self-care (01) ==
LOC: ED 20:00
DX: G43.109 Migraine with aura, not intractable, without status migrainosus (principal); R42 Dizziness and giddiness
CPT/HCPCS: 36415; 70450; 80048; 85025; 96374; 99284

== ENCOUNTER 2021-01-30 09:57 | Emergency (ER) | payer OTHER ==
[2021-01-30] MEDS ORDERED: AMPICILLIN/SULBACTAM 3 GM in SODIUM CHLORIDE 0.9% MINIBAG 100 ML IV STA (10:34)
--- NOTE | 2021-01-30 10:38 | ED Physician Documentation ---
PD HPI UPPER EXT INJURY - Stated complaint Stated Complaint: RT ARM INJ - Chief complaint Chief Complaint: Trauma Ext - History obtained from History obtained from: Patient - Additonal information Additional information: Patient comes emergency department chief complaint of pain and swelling in right forearm and hand after multiple dog bites with puncture wounds which were sustained yesterday. Patient states that his dogs began fighting and he tried to separate them and got bitten multiple times. He states the dog's a gaffney mix. Dog is up-to-date on shots. Patient states that the dorsum of his hand began to swell immediately after injury, but the areas around the other wounds have become swollen over the last approximately 24 hours. He denies drainage out of the wounds. He denies fevers or chills. No red streaking that he has noticed. No other complaints at this time. Review of Systems Ten Systems: 10 systems reviewed and negative Constitutional: reports: Reviewed and negative Eyes: reports: Reviewed and negative Ears: reports: Reviewed and negative Nose: reports: Reviewed and negative Throat: reports: Reviewed and negative Cardiac: reports: Reviewed and negative Respiratory: reports: Reviewed and negative GI: reports: Reviewed and negative : reports: Reviewed and negative Skin: reports: Bite / sting Musculoskeletal: reports: Extremity pain, Extremity swelling Neurologic: reports: Reviewed and negative Psychiatric: reports: Reviewed and negative Endocrine: reports: Reviewed and negative Immunocompromised: reports: Reviewed and negative PD PAST MEDICAL HISTORY - Past Medical History Past Medical History: Yes Cardiovascular: Arrhythmia Respiratory: Asthma Neuro: Headaches, Migraines, Seizure disorder, Fainting, Other Endocrine/Autoimmune: None GI: None : None HEENT: None Psych: None Musculoskeletal: None Derm: None - Past Surgical History Past Surgical History: Yes HEENT: Tonsil/Adenoidectomy - Present Medications Home Medications: Ambulatory Orders Medication Instructions Recorded Confirmed Amox/Clav 875/125 [Augmentin 1 each PO Q12H #20 tablet 01/30/21 875/125 Tab] HYDROcod/ACETAM 5/325 [[place] 5/325] 1 - 2 ea PO Q6H PRN #15 tablet 01/30/21 Rizatriptan 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 [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] 10 mg PO PRN PRN 01/30/21 01/30/21 Sulfamethox/Trimeth 800/160 1 each PO BID #20 tablet 01/30/21 [Bactrim Ds 800/160] lamoTRIgine [LaMICtal] 50 mg PO BID 01/30/21 01/30/21 - Allergies Allergies/Adverse Reactions: Allergies Allergy/AdvReac Type Severity Reaction Status Date / Time No Known Drug Allergies Allergy Verified 01/30/21 10:00 - Social History Does the pt smoke?: No Smoking Status: Never smoker Does the pt drink ETOH?: Yes Does the pt have substance abuse?: No - Immunizations Immunizations are current?: Yes - POLST Patient has POLST: No PD ED PE NORMAL - Vitals Vital signs reviewed: Yes - General General: Alert and oriented X 3, No acute distress - HEENT HEENT: Atraumatic, PERRL, EOMI, Moist mucous membranes - Neck Neck: Supple, no meningeal sign - Cardiac Cardiac: Strong equal pulses - Respiratory Respiratory: No respiratory distress - Derm Derm: Warm and dry, Other (Multiple puncture wounds noted over right hand and forearm. Moderate edema of the radial aspect right hand dorsum. No drainage or distinct fluctuance/induration. Moderate edema proximal forearm with scattered areas of erythema. No crepitus. ) - Extremities Extremities: No deformity - Neuro Neuro: Alert and oriented X 3 - Psych Psych: Normal mood, Normal affect Results - Vitals Vitals: Vital Signs - 24 hr 01/30/21 10:01 Temperature 36.1 C L Heart Rate 86 Respiratory 16 Rate Blood Pressure 134/85 H O2 Saturation 98 Oxygen O2 Source Room air PD MEDICAL DECISION MAKING - ED course Complexity details: considered differential, d/w patient ED course: Patient had quite a bit of edema of his right hand and forearm, collectively, and with multiple puncture wounds, I was concerned for possible infection. The patient was given a dose of Unasyn in the emergency department. He was prescr ibed Augmentin and Bactrim. We have discussed home management of the symptoms, as well as the usual indications for return. Departure - Departure Disposition: 01 Home, Self Care Clinical Impression: Dog bite Qualifiers: Encounter type: initial encounter Qualified Code(s): W54.0XXA - Bitten by dog, initial encounter Cellulitis Qualifiers: Site of cellulitis: extremity Site of cellulitis of extremity: upper extremity Laterality: right Qualified Code(s): L03.113 - Cellulitis of right upper limb Condition: Stable Instructions: ED Infec Skin Cellulitis, ED Bite Dog Prescriptions: Amox/Clav 875/125 [Augmentin 875/125 Tab] 1 each PO Q12H #20 tablet Sulfamethox/Trimeth 800/160 [Bactrim Ds 800/160] 1 each PO BID #20 tablet HYDROcod/ACETAM 5/325 [[place] 5/325] 1 - 2 ea PO Q6H PRN #15 tablet PRN Reason: Pain
[2021-01-30] MEDS ORDERED: ACETAMINOPHEN 325 MG TABLET PO STA (11:00)
[2021-01-30] MEDS ORDERED: IBUPROFEN 800 MG TABLET PO STA (11:00)
[2021-01-30 11:31] VITALS: BP 144/71
== END 2021-01-30 11:33 | disposition home or self-care (01) ==
LOC: ED 09:57
DX: S51.851A Open bite of right forearm, initial encounter (principal); S61.451A Open bite of right hand, initial encounter; L03.113 Cellulitis of right upper limb; W54.0XXA Bitten by dog, initial encounter; Y93.89 Activity, other specified
CPT/HCPCS: 96365; 99284; A9270

== ENCOUNTER 2021-02-25 23:36 | Emergency (ER) | payer OTHER ==
--- OUTSIDE RECORDS SUMMARY | 2021-02-25 23:40 | EXTERNAL MEDICAL SUMMARY RPT | Continuity of Care Document ---
:1990 Demographics Phone Unavailable Preferred Language Unknown Marital Status Unknown Yarsani Affiliation Unknown Race Unknown Ethnic Group Unknown Author Organization [facility] Address [address] [place] [address] Phone Social History date description facility [phone]
--- OUTSIDE RECORDS SUMMARY | 2021-02-25 23:41 | EXTERNAL MEDICAL SUMMARY RPT | Continuity of Care Document ---
:1990 Demographics Phone Unavailable Preferred Language Unknown Marital Status Unknown Mormonism Affiliation Unknown Race Unknown Ethnic Group Unknown Author Organization [facility] Address [address] [place] [address] Phone Social History date description facility [phone]
--- NOTE | 2021-02-26 00:12 | ED Physician Documentation ---
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 He has no recollection of the event and he says his said he was unresponsive during the episode. He has subsequently returned to his baseline mental status and currently is asymptomatic. He says his told him that he was confused and slow to respond after having the episode of shaking but he does not know the time interval from the episode to when he was back to his baseline. He says he has had many similar previous episodes and has undergone extensive outpatient testing including brain MRI and multiple EEGs. He is followed by a neurologist in [place]. He says his diagnosis is complex migraines but it does not sound like he has been diagnosed with a seizure disorder. He says he has been on different medications to try to decrease the severity and frequency of these episodes and has had some improvement with lamictal, the dose of which has been changed over time without notable improvement at higher doses than his current prescription (50 mg BID). He is not certain as to which medications had been tried previously. Review of Systems Constitutional: denies: Fever, Chills, Sweats Eyes: denies: Loss of vision, Decreased vision, Photophobia Cardiac: reports: Reviewed and negative Respiratory: reports: Reviewed and negative GI: reports: Reviewed and negative Neurologic: reports: Seizure, Altered mental status (resolved ELECTRONICS TEST ENGINEER). denies: Generalized weakness, Focal weakness, Numbness, Headache, Head injury PD PAST MEDICAL HISTORY - Past Medical History Past Medical History: Yes Cardiovascular: Arrhythmia Respiratory: Asthma Neuro: Headaches, Migraines, Seizure disorder, Fainting, Other Endocrine/Autoimmune: None GI: None : None HEENT: None Psych: None Musculoskeletal: None Derm: None - Past Surgical History Past Surgical History: Yes HEENT: Tonsil/Adenoidectomy - Present Medications Home Medications: Ambulatory Orders Medication Instructions Recorded Confirmed Rizatriptan Benzoate [[employer] Rehabilitation Director] 10 mg PO PRN PRN 01/30/21 02/25/21 lamoTRIgine [LaMICtal] 50 mg PO BID 01/30/21 02/25/21 - Allergies Allergies/Adverse Reactions: Allergies Allergy/AdvReac Type Severity Reaction Status Date / Time No Known Drug Allergies Allergy Verified 02/25/21 23:46 - Social History Does the pt smoke?: No Smoking Status: Never smoker Does the pt drink ETOH?: Yes Does the pt have substance abuse?: No - Immunizations Immunizations are current?: Yes - POLST Patient has POLST: No PD ED PE NORMAL - Vitals Vital signs reviewed: Yes - General General: Alert and oriented X 3, No acute distress, Well developed/nourished - HEENT HEENT: Moist mucous membranes, Other (no tongue laceration, echymosis, or abrasion) - Neck Neck: Supple, no meningeal sign - Cardiac Cardiac: RRR, No murmur, No gallop, No rub - Respiratory Respiratory: No respiratory distress, Clear bilaterally - Abdomen Abdomen: Soft, Non tender - Derm Derm: Normal color, Warm and dry - Neuro Neuro: Alert and oriented X 3, video game developer 2-12 intact, No motor deficit, No sensory deficit, Normal speech Eye Opening: Spontaneous Motor: Obeys Commands Verbal: Oriented GCS Score: 15 Results - Vitals Vitals: Oxygen O2 Source Room air - Labs Labs: Laboratory Tests 02/26/21 00:45 POC Whole Bld Glucose 122 H PD MEDICAL DECISION MAKING - ED course Complexity details: reviewed old records, reviewed results, re-evaluated patient, considered differential, d/w patient ED course: patient presents with recurrence of seizure-like activity. He describes extensive outpatient testing that has included brain MRI, lumbar puncture, and multiple EEGs. It is not clear if he has been diagnosed with epilepsy. He is asymptomatic by the time of this ED evaluation. Emergent testing at this time is unlikely to yield a new/different diagnosis and/or change current management. I discussed the option for emergent testing with the patient but I recommended no emergent testing at this time and patient expresses understanding of, and agreement with, this plan. He is to follow up with his neurologist, next available appointment. He was evaluated in this ED 08/29/19 and the ED note reflects a very similar presentation including the right arm stiffness and confusion after the episode. A fingerstick for blood sugar is performed tonight, result is 122. Departure - Departure Disposition: 01 Home, Self Care Clinical Impression: Seizure-like activity Condition: Good Instructions: ED Seizure Recurrent Comments: Contact your neurologist on Sunday. Please return to the emergency department if you have another event such as tonight. Discharge Date/Time: 02/26/21 00:55
[2021-02-26 00:47] VITALS: BP 143/84
== END 2021-02-26 00:55 | disposition home or self-care (01) ==
LOC: ED 23:36
DX: R56.9 Unspecified convulsions (principal)
CPT/HCPCS: 99282; 99284

== ENCOUNTER 2021-04-27 08:06 | Outpatient (CLI) | payer OTHER ==
[2021-04-27 08:32] VITALS: BP 129/81
--- NOTE | 2021-04-27 08:32 | SLEEP CARE CONSULTATION ---
Information from patient questionnaire entered by Ambreen Rucker. I have reviewed and concur with the information entered by Ambreen Rucker. This document represents the service I personally performed and the decisions made by , Mary Arteaga ARNP. History of Present Illness Service Date and Time: 04/27/2021 0806 Previous diagnosis: Mild, Obstructive Sleep Apnea-Hypopnea Syndrome AHI: 9.0 (in 2019) Reason for follow up: annual (last seen 01/2020), other (restart process, never set up) Prior sleep studies: Yes Year and Where: 2020 - [facility] Type of Sleep Study: Polysomnography HPI additional information: CINDY YOUNG was diagnosed to have mild, AHI 9.0, obstructive sleep apnea- hypopnea syndrome and returned today for positional therapy follow-up. CPAP Compliance Data Compliance data discussion: He has tried to sleep on his side as instructed but states he is still exhausted all the time. He would like try the CPAP for his sleep apnea. He states he has lost 27 pounds since last study. Subjective Initial [place] Sleepiness Scale score: 14 (in 2019) Current [place] Sleepiness Scale score: 15 Allergies and Home Medications Drug allergies reviewed: Yes (NKDA) Home medication list reviewed: Yes Allergy and home medication list: Limotrigine Mementine Lisinopril Review of Systems Review of systems same as previous: No (Complex migraines) Physical Exam Blood Pressure: 129/81 Cuff size: wrist Heart Rate: 78 O2 Saturation: 98 Height: 6 ft 1 in Weight: 230 lb Body Mass Index: 30.3 BMI Classification: Obese Impression and Plan 1. Obstructive Sleep Apnea-Hypopnea Syndrome, mild. On positional management therapy, the patient has been having difficulty sleeping non-supine and continues to have daytime fatigue. He continues to have a history of irregular snoring, morning headache, frequent awakening during the night, unrefreshed sleep, cognitive impairment, and excessive daytime sleepiness. I recommend proceeding to polysomnography to confirm the diagnosis and to assess severity. I informed the patient of what the sleep studies involve and after some discussion, obtained agreement to proceed. The pathophysiology of obstructive sleep apnea-hypopnea syndrome was discussed with the patient and health risks of cardiovascular and cerebrovascular disease if not treated. Risks of drowsy driving discussed in detail and patient advised to avoid long distance driving and to tap puller at the first sign of drowsiness. Patient agreed to plan. * Schedule polysomnography. * Avoid long distance driving or driving when feeling sleepy. * Avoid alcohol, sedative and muscle relaxant around bedtime. * Continue to try to lose weight. * Review instructions provided by trained office staff on how to prepare for the sleep study. * Return for follow-up after sleep study completed. Counseling Topics: Weight loss health impact Visit Type: In Office Time Spent with Patient (minutes): 12 Provider Statement: I spent 100% of the Face to Face Visit with the patient with greater than 50% spent counseling the patient and coordination of care.
== END 2021-04-27 08:07 | disposition home or self-care (01) ==
LOC: SC 08:06
PROVIDERS: ATTEND Nurse Practitioner Family
DX: G47.33 Obstructive sleep apnea (adult) (pediatric) (principal); E66.9 Obesity, unspecified; Z68.30 Body mass index [BMI] 30.0-30.9, adult
CPT/HCPCS: 99212

== ENCOUNTER 2021-04-29 09:44 | Outpatient (CLI) | payer OTHER | END 2021-04-29 09:45 | disposition home or self-care (01) | LOC: SC 09:44 | PROVIDERS: ATTEND Nurse Practitioner Family | DX: G47.33 Obstructive sleep apnea (adult) (pediatric) (principal); E66.9 Obesity, unspecified; Z68.30 Body mass index [BMI] 30.0-30.9, adult | CPT/HCPCS: 95806 ==

== ENCOUNTER 2021-05-19 09:05 | Outpatient (CLI) | payer OTHER ==
--- NOTE | 2021-05-19 09:37 | SLEEP CARE CONSULTATION ---
Information from patient questionnaire entered by Ambreen Rucker. I have reviewed and concur with the information entered by Ambreen Rucker. This document represents the service I personally performed and the decisions made by , Mary Arteaga ARNP. History of Present Illness Service Date and Time: 05/19/2021904 Initial [place] Sleepiness Scale score: 14 (in 2019) Current [place] Sleepiness Scale score: 13 Additional HPI information: CINDY YOUNG returns for follow up and results of the recently performed home sleep study. I explained the pathophysiology behind obstructive sleep apnea. We then spent quite a bit of time discussing different treatment options. For mild obstructive sleep apnea, surgery and oral appliance are alternatives to nasal CPAP therapy but in moderate or severe cases, nasal CPAP is the most effective and reliable treatment. Because apnea is primarily in supine position, then positional management therapy could be effective. Methods discussed such as positioning with pillows, using a T-shirt with tennis balls in the back, and shown commercial products that have a pillow format on back to prevent supine sleep. I reviewed the impact of weight changes on sleep apnea and strongly recommended losing weight. After some discussion, the patient opted to go with the nasal CPAP therapy. Nasal autoCPAP set at 4-15 cmH20 will be ordered with rationale explained. A manual titration study will be ordered if unable to find optimal pressure with office adjustments. I explained how CPAP machine works with sample devices [employer]pir[employer]ouds Dreamstation and ROSTR [id number] and what to expect when using the machine. Using CPAP every night in order to get used to it was emphasized. Patient advised to put CPAP mask on before getting into bed so as not to fall asleep without CPAP. To assist acclimation to CPAP use, it could also be used for a short time during day while reading or watching TV. The patient was instructed to call the CPAP supplier to discuss any mechanical problem that may occur. If the mask given is uncomfortable or is difficult to keep on through the night even with adjustment, contact the CPAP supplier as many will replace with another mask style if notified before 30 days. If snoring or perceives is not getting enough air or too much air from the machine, notify this office. [facility] patient education PAP tips reviewed and given to patient. Patient counseled not drink alcohol less than 4 hours before bedtime as it can increase snoring and apnea. Patient was cautioned about risks of drowsy driving until sleepiness symptoms resolve. Sleep Study - Results Type of Sleep Study: Home sleep study Prior sleep studies: Yes Year and Where: 2019(PSG) - [facility] Sleep Polysomnography/Home Sleep Study results: Physician Impression: The quality of the study is good. The length of the study is adequate (> 240 minutes). Please also see the tabulated and graphic data. 1. Obstructive Sleep Apnea-Hypopnea (ICD-10 G47.33), mild, with an AHI of 9.8/hr and jen SaO2 of 87%. During the study, the patient had 33 apneas (31 obstructive, 0 central, 2 mixed) and 25 hypopneas. The longest episode lasted 58.0 seconds. The patient only slept supine during this study (supine AHI was 10.0 and non-supine, 0.00). 2. Hypoxemia (ICD-10 R09.02), minimal, with the lowest oxygen saturation of 87 % and 0.8 minutes with SaO2 under 90%. Baseline oxygen saturation was normal (Average oxygen saturation was 94%). Allergies and Home Medications Home medication list reviewed: Yes (Memantine, Limotrigine) Review of Systems Review of systems same as previous: Yes (no changes) Physical Exam Heart Rate: 75 O2 Saturation: 98 Height: 6 ft 1 in Weight: 230 lb Body Mass Index: 30.3 BMI Classification: Obese Impression and Plan 1. Obstructive Sleep Apnea-Hypopnea Syndrome, mild, with lowest oxygen saturation of 87%. Obviously this is the cause of the patients symptoms of unrefreshed sleep, and excessive daytime sleepiness. Positive pressure therapy could benefit his overall health and reduce cardiovascular and cerebrovascular adverse events. As mentioned above, the patient will be started on nasal autoCPAP therapy with pressure set at 4-15 cmH2O. A manual titration study will be completed if unable to find optimal treatment pressure with office adjustments. Compliance guidelines also reviewed. A copy of compliance guidelines will be given for reference at check out. Because the apnea is more severe supine, I instructed to avoid sleeping supine using pillow positioning until able to start CPAP use. * Nasal auto CPAP therapy, pressure at 4-15 cm H2O. * Attempt to lose weight. * Avoid alcohol consumption near bedtime. * Avoid supine sleep until using CPAP. * The patient is again cautioned about driving until sleepiness completely resolves. * Return one month after CPAP obtained. I will assess response to therapy and compliance at that time. Counseling Topics: Weight loss health impact Visit Type: In Office Time Spent with Patient (minutes): 20 Provider Statement: I spent 100% of the Face to Face Visit with the patient with greater than 50% spent counseling the patient and coordination of care.
== END 2021-05-19 09:06 | disposition home or self-care (01) ==
LOC: SC 09:05
PROVIDERS: ATTEND Nurse Practitioner Family
DX: G47.33 Obstructive sleep apnea (adult) (pediatric) (principal); E66.9 Obesity, unspecified; Z68.30 Body mass index [BMI] 30.0-30.9, adult
CPT/HCPCS: 99212; 99213

== ENCOUNTER 2021-09-02 08:50 | Outpatient (CLI) | payer OTHER | END 2021-09-02 23:59 | disposition home or self-care (01) | LOC: LAB.N 08:50 | PROVIDERS: ATTEND Family Medicine | DX: R07.0 Pain in throat (principal); Z20.822 Contact with and (suspected) exposure to COVID-19 | CPT/HCPCS: 87070 ==